=== PATIENT | male | born 2005 | race Two or more races ===

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

== ENCOUNTER 2023-01-14 12:30 | Emergency (ER) | payer OTHER, SELFPAY ==
[2023-01-14 13:52] LABS: SARS-CoV-2 NAA Rapid Test Not Detected (NotDetected)
== END 2023-01-14 14:44 | disposition home or self-care (01) ==
LOC: CSHERS 12:30
DX: B34.9 Viral infection, unspecified (principal); Z20.822 Contact with and (suspected) exposure to COVID-19
CPT/HCPCS: 99283